=== PATIENT | male | born 1960 | race American Indian/Alaskan Native ===

== ENCOUNTER 2021-08-28 08:47 | Day surgery (SDC) | payer MEDICAID, OTHER ==
[~2021-08-28 08:47] MED LIST: Lactated Ringers 1,000 ML IV SCH
[2021-08-28] MEDS ORDERED: Ondansetron 4 MG/2 ML SDV ONE (08:59)
[2021-08-28] MEDS ORDERED: Lidocaine 1% 5 ML VIAL ONE (08:59)
[2021-08-28] MEDS ORDERED: Propofol 200 MG/20 ML SDV ONE (08:59)
[2021-08-28] MEDS ORDERED: Midazolam 1 MG/ML 2 ML SDV ONE ×2 (09:00→09:01)
[2021-08-28] MEDS ORDERED: fentaNYL 100 MCG/2 ML SDV ONE (09:00)
[2021-08-28 11:26] VITALS: BP 119/73; PULSE 69
== END 2021-08-28 11:50 | disposition home or self-care (01) ==
LOC: MW.SDS 08:47
PROVIDERS: ATTEND Surgery
DX: Z12.11 Encounter for screening for malignant neoplasm of colon (principal); D12.0 Benign neoplasm of cecum; D12.6 Benign neoplasm of colon, unspecified; K29.50 Unspecified chronic gastritis without bleeding; B96.81 Helicobacter pylori [H. pylori] as the cause of diseases classified elsewhere; K31.89 Other diseases of stomach and duodenum; K64.8 Other hemorrhoids; K64.4 Residual hemorrhoidal skin tags; K21.9 Gastro-esophageal reflux disease without esophagitis; C16.9 Malignant neoplasm of stomach, unspecified; N40.0 Benign prostatic hyperplasia without lower urinary tract symptoms; F17.210 Nicotine dependence, cigarettes, uncomplicated; E78.00 Pure hypercholesterolemia, unspecified; I10 Essential (primary) hypertension; E66.9 Obesity, unspecified; Z68.30 Body mass index [BMI] 30.0-30.9, adult; M19.90 Unspecified osteoarthritis, unspecified site; Z98.890 Other specified postprocedural states; Z79.1 Long term (current) use of non-steroidal anti-inflammatories (NSAID); Z79.899 Other long term (current) drug therapy
CPT/HCPCS: 43239; 45380; 45385; J2250; J2405; J2704; J3010; J7120; 00813

== ENCOUNTER 2022-01-01 10:08 | Day surgery (SDC) | payer MEDICAID ==
[2022-01-01] MEDS ORDERED: Propofol 200 MG/20 ML SDV ONE (13:19)
[2022-01-01] MEDS ORDERED: Acetaminophen 325 MG Tab PO PRN (15:04)
[2022-01-01] MEDS ORDERED: Ondansetron 4 MG/2 ML SDV IVPUSH PRN (15:04)
[2022-01-01] MEDS ORDERED: Lactated Ringers 1,000 ML IV SCH (15:15)
[2022-01-01 15:21] VITALS: BP 92/63; PULSE 64
== END 2022-01-01 15:35 | disposition home or self-care (01) ==
LOC: MW.SDS 10:08
PROVIDERS: ATTEND Surgery
DX: K29.50 Unspecified chronic gastritis without bleeding (principal); K31.A0 Gastric intestinal metaplasia, unspecified; K25.9 Gastric ulcer, unspecified as acute or chronic, without hemorrhage or perforation; K22.89 Other specified disease of esophagus; K31.819 Angiodysplasia of stomach and duodenum without bleeding; N40.0 Benign prostatic hyperplasia without lower urinary tract symptoms; C16.9 Malignant neoplasm of stomach, unspecified; F17.210 Nicotine dependence, cigarettes, uncomplicated; K21.00 Gastro-esophageal reflux disease with esophagitis, without bleeding; E66.9 Obesity, unspecified; E78.00 Pure hypercholesterolemia, unspecified; Z79.899 Other long term (current) drug therapy; Z98.890 Other specified postprocedural states
CPT/HCPCS: 43239; J2704; J7120; 00731